=== PATIENT | female | born 1990 | race Caucasian/White ===

== ENCOUNTER 2021-11-09 17:48 | Emergency (ER) | payer OTHER, SELFPAY ==
[2021-11-09 17:48] VITALS: BP 115/72; PULSE 89; RESP 16; TEMP 36.4; O2SAT 100; BMI 24.8
--- NOTE | 2021-11-09 18:25 | EX.ED.DYSGE1 ---
HPI <MATTHEW Lopez - Last Filed: 11/09/21 20:40> History of Present Illness Chief Complaint: Lower Extremity Injury Narrative Narrative: 31-year-old female with history of varicose veins, presents the emerge department 1 week of left leg pain. Patient had redness to her calf, this has now traveled to her left thigh. Patient has redness, pain from palpation. Patient denies any infectious symptoms, patient denies any chest pain, shortness of breath, fever chills nausea vomiting PFSH <MATTHEW Lopez - Last Filed: 11/09/21 20:40> [facility] Medical History no medical history Allergy/AdvReac Type Severity Reaction Status Date / Time No Known Allergies Allergy Verified 11/09/21 17:50 Surgical History no surgical history Social History Smoking Status: Never smoker ROS <MATTHEW Lopez - Last Filed: 11/09/21 20:40> ROS ED ROS Narrative Constitutional: Negative for fever, chills, weight loss or gain, weakness Eyes: Negative for vision loss, vision change, double vision ENT: Negative for any hearing changes, ringing in the ears, dizziness, discharge, pain Nose: Negative for any congestion, runny nose, sinus pain, allergies Throat: Negative for any sore throat hoarseness, voice changes, Cardiovascular: Negative for any chest pain, tightness, palpitations, racing heartbeat Respiratory: Negative for any coughs, sputum production, coughing, hemoptysis, shortness of breath, shortness of breath on exertion, Gastrointestinal: Negative for any abdominal pain, nausea, vomiting, diarrhea, constipation, blood in stool, blood in vomit : Negative for any urinary frequency, incontinence, dysuria, retention, blood in urine Muscle skeletal: Negative for any muscle joint pain, stiffness, myalgias, arthralgias, neck pain, back pain. Positive for left leg pain Neurological: Negative for any headache, head injury, dizziness, syncope, numbness or tingling Skin: Negative for any rashes, lumps, itching, abrasions, lacerations. Patient has lumps to the left upper thigh, varicose veins. Psychiatric: Negative for any depression, anxiety, stress, suicidal ideation, homicidal ideation Hematologic: Negative for any easy bruising, excessive bruising, easy bleeding Allergies: Negative for any eczema, hives, rash EXAM <MATTHEW Lopez - Last Filed: 11/09/21 20:40> Physical Exam Const Vital Signs: 11/09/21 17:48 Temperature 97.5 F L Temperature Source Temporal Pulse Rate 89 Respiratory Rate 16 Blood Pressure 115/72 Blood Pressure Mean 86 Pulse Ox 100 Oxygen Delivery Method Room Air Positive well nourished and well developed General Appearance ED: well developed HEENT Reports moist mucous membranes Eyes PERRL and EOMs intact bilaterally Neck no lymphadenopathy and supple Chest Wall inspection of chest normal and palpation of chest normal Resp normal respiratory effort and clear to auscultation bilaterally Cardio regular rate and regular rhythm GI normal to inspection, nondistended, normoactive bowel sounds, non-tender and non-distended Palpation: soft Back/Spine no CVA tenderness Extremity Extremity Narrative: Patient has some redness to the left medial thigh, there is induration, patient does have pain on palpation. There is no drainage. Patient does have palpable lumps/masses to the calf, however patient does have a long history of varicose veins. Patient does have a +2 radial pulse. Patient will dorsiflex plantarflex foot against resistance Neuro oriented x3 and CN's II-XII intact bilaterally Sensorium / Orientation: alert Motor Exam: strength 5/5 throughout Psych mental status grossly normal Skin no rashes or lesions noted <Dr. Eliel Arnold DO - Last Filed: 11/16/21 22:49> Physical Exam Const Vital Signs: 11/09/21 17:48 Temperature 97.5 F L Temperature Source Temporal Pulse Rate 89 Respiratory Rate 16 Blood Pressure 115/72 Blood Pressure Mean 86 Pulse Ox 100 Oxygen Delivery Method Room Air MDM <MATTHEW Lopez - Last Filed: 11/09/21 20:40> [facility] Narrative Medical decision making narrative: Patient appears well, patient peers nontoxic, vital signs are stable. Patient presents to the emergency department with complaints of left leg swelling, concern for DVT. Patient did receive an ultrasound of the left lower extremity, did show superficial thrombophlebitis from the calf to the thigh of the greater saphenous vein. After talking to the building energy retrofit technician, this test is negative for any deep vein thrombosis. Patient will treat symptomatically, patient will continue taking Tylenol, patient is so NSAIDs are contraindicated. As well as instructed heat. Patient will follow up with vascular referral. Patient given strict return precautions to return for any numbness or tingling to the left leg, chest pain, shortness of breath, dizziness, syncope. Patient verbally understands importance of follow-up and stable for discharge Radiography Diagnostic Testing: Clinical Impression(s) from Imaging Studies Venous Duplex 11/09/21 18:43 IMPRESSION: No sonographic evidence of deep venous thrombosis. Superficial thrombosis greater saphenous and lesser saphenous veins as above. Electronically Signed: Malachi Fowler DO at 20:37 EST , <Dr. Eliel Arnold, - Last Filed: 11/16/21 22:49> [facility] MDM Narrative Medical decision making narrative: Attending note: Patient seen and evaluated with tablet tester. I perform my own [id number] evaluation. I agree with the plan of work-up. 1 week worsening left lower extremity pain. History of varicose veins. Similar episodes in the past both legs. States had thrombophlebitis in the past. She has never follow-up with a vascular surgeon. States would eventually resolve with heat. Denies chest pains or shortness of breath. Exam there is varicose veins left calf and along the medial thigh tender to palpation there is erythema around the distal medial thigh. There is no drainage. Pulses are intact distally. Ultrasound left lower extremity was obtained negative for DVT however positive for superficial thrombophlebitis. Patient was continued on NSAIDs continue warm compresses and given follow-up with vascular surgery. Radiography Diagnostic Testing: Clinical Impression(s) from Imaging Studies Venous Duplex 11/09/21 18:43 IMPRESSION: No sonographic evidence of deep venous thrombosis. Superficial thrombosis greater saphenous and lesser saphenous veins as above. Electronically Signed: Malachi Fowler DO at 20:37 EST , Discharge Plan Triage Chief Complaint: Lower Extremity Injury ED Provider: Robel Darby Dx/Rx/DC Orders Clinical Impression: Thrombophlebitis Instructions: ED Thrombophlebitis, Superficial Primary Care Provider: Gurpreet Lauren Referrals: Gurpreet Lauren DO [Primary Care Provider] - Oskar Valadez MD [STAFF PHYSICIAN] - (Please follow-up with this doctor regarding your vascular issues) Activity Restrictions/Additional Instructions: Please continue your Tylenol, use heat, follow-up with vascular surgeon. Please return here for any shortness of breath, chest pain, syncope, any other issues per Disposition Disposition: Home, Self Care Discharge Date/Time: 11/09/21 23:59
--- NOTE | 2021-11-09 18:43 | US_ITS ---
INDICATION: LT LEG PAIN REDNESS AND SWELLING EXAMINATION: Ultrasound US Venous Duplex LE Unilat / Limited TECHNIQUE: Ramirez scale, pulse wave, and color flow Doppler imaging was performed of the lower extremity venous system. The left greater saphenous, common femoral, femoral, and popliteal veins were interrogated. Posterior tibial and peroneal veins were also assessed. Contralateral right common femoral vein interrogated with grayscale images only. COMPARISON: None. FINDINGS: There is normal compression, augmentation, and signal throughout the visualized deep lower extremity veins, including the posterior tibial and peroneal veins; no deep venous thrombosis. Absent color flow, thickening and internal echoes consistent with thrombosis of the greater saphenous and lesser saphenous veins from the mid thigh to the level of the left upper calf region. Distal greater saphenous vein thickening measuring up to 2.4 cm in diameter. No mass or fluid collection. US/Venous Duplex Imag/Limited/Uni IMPRESSION: No sonographic evidence of deep venous thrombosis. Superficial thrombosis greater saphenous and lesser saphenous veins as above. Electronically Signed: Malachi Fowler DO at 20:37 EST ,
[2021-11-09 20:52] VITALS: BP 128/67; PULSE 85; RESP 16; O2SAT 97
== END 2021-11-09 20:53 | disposition home or self-care (01) ==
PROVIDERS: Emergency Provider Nurse Practitioner; PCP Family Medicine; Visit Provider Nurse Practitioner
DX: I80.3 Phlebitis and thrombophlebitis of lower extremities, unspecified (principal); I83.892 Varicose veins of left lower extremity with other complications
CPT/HCPCS: 93971; 99282